=== PATIENT | female | born 1980 | race Caucasian/White ===

== ENCOUNTER 2019-10-16 21:04 | Emergency (ER) | payer OTHER ==
[~2019-10-16] VITALS: Ht 157.5 cm; Wt 54.4 kg
[2019-10-16 23:30] VITALS: BP 116/75
== END 2019-10-16 23:30 | disposition home or self-care (01) ==
LOC: ER 21:04
DX: S92.514A Nondisplaced fracture of proximal phalanx of right lesser toe(s), initial encounter for closed fracture (principal); Z98.890 Other specified postprocedural states; W22.09XA Striking against other stationary object, initial encounter; Y93.02 Activity, running; Y92.098 Other place in other non-institutional residence as the place of occurrence of the external cause; Y99.8 Other external cause status